=== PATIENT | male | born 1980 | race Hispanic/Latino ===

== ENCOUNTER 2017-12-17 15:23 | Emergency (ER) | payer SELFPAY ==
--- NOTE | 2017-12-17 16:23 | RAD ---
PA AND LATERAL CHEST X-RAY 12/17/17 HISTORY: Cough, weakness, nausea, vomiting with onset two weeks ago. Headache. COMPARISON: None available. FINDINGS: The cardiac silhouette and pulmonary vasculature are within normal limits. The lungs are clear. IMPRESSION: No acute cardiopulmonary process. POS: OFF
[2017-12-17 16:25] LABS: #Basophils 0.1 thou/uL (0.0-0.2); #Lymphocytes 0.8 thou/uL (1.20-3.40); #Monocytes 1.1 thou/uL (0.11-0.59); #Neutrophils 13.3 thou/uL (1.40-6.50); %Basophils 0.4 % (0.0-1.0); %Eosinophils 0.2 % (0.0-10.0); %Lymphocytes 5.3 % (21.0-51.0); %Monocytes 7.4 % (0.0-10.0); %Neutrophils 86.7 % (42.0-75.0); Hemoglobin 16.5 g/dL (14.0-18.0); Mean Corpuscular HGB CONC 33.8 g/dL (32.0-36.0); Mean Corpuscular Hemoglobin 29.3 pg (27.0-31.0); Mean Corpuscular Volume 86.8 fl (80.0-94.0); Mean Platelet Volume 7.6 fL (7.4-10.4); Platelet Count 256 thou/uL (130-400); RBC Distribution Width 11.1 % (11.5-14.5); Red Blood Cell (RBC) Count 5.61 mill/uL (4.70-6.10); White Blood Cell (WBC) Count 15.4 thou/uL (4.8-10.8)
[2017-12-17 16:44] LABS: ALT (SGPT) 110 U/L (8-55); AST (SGOT) 53 U/L (5-34); Albumin 4.5 g/dL (3.5-5.0); Alkaline Phosphatase 97 U/L (40-150); Anion Gap 16 mmol/L (10-20); BUN (Urea Nitrogen) 10 mg/dL (8.9-20.6); Bilirubin, Total 0.8 mg/dL (0.2-1.2); Calc. Creatinine Clearance 0 mL/min (70-130); Calcium 9.6 mg/dL (7.8-10.44); Carbon Dioxide 22 mmol/L (22-29); Chloride 104 mmol/L (98-107); Estimated GFR-MDRD Greater than 90; Globulin 3.2 g/dL (2.4-3.5); Glucose 140 mg/dL (70-105); Potassium 4.2 mmol/L (3.5-5.1); Protein, Total 7.7 g/dL (6.0-8.3); Sodium 138 mmol/L (136-145)
== END 2017-12-17 18:11 | disposition home or self-care (01) ==
LOC: SCSER 15:23
DX: B34.9 Viral infection, unspecified (principal); E86.0 Dehydration; E11.9 Type 2 diabetes mellitus without complications; I10 Essential (primary) hypertension; E78.5 Hyperlipidemia, unspecified
CPT/HCPCS: 71046; 80053; 85025; 93005; 96360; 96361

== ENCOUNTER 2020-12-26 12:48 | Emergency (ER) | payer SELFPAY ==
[~2020-12-26 12:48] MED LIST: Iopamidol-370 76% 500 ML 1 ML ONE
[2020-12-26] MEDS ORDERED: Fentanyl 100 MCG/2 ML VIAL ONE (13:45)
[2020-12-26] MEDS ORDERED: Ketorolac Tromethamine 30 MG/ML VIAL ONE (13:45)
[2020-12-26] MEDS ORDERED: Boostrix 0.5 ML (Tdap) VIAL ONE ×2 (13:49→13:57)
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
== END 2020-12-26 14:31 | disposition home or self-care (01) ==
LOC: ERS 12:48
DX: S06.0X0A Concussion without loss of consciousness, initial encounter (principal); V29.40XA Motorcycle driver injured in collision with unspecified motor vehicles in traffic accident, initial encounter
CPT/HCPCS: 70450; 71260; 74177; 90715; 96374; 96375; J1885; J3010; Q9967